=== PATIENT | female | born 1975 | race Caucasian/White ===

== ENCOUNTER 2022-05-12 14:24 | Outpatient (CLI) | payer OTHER, SELFPAY ==
--- NOTE | 2022-05-12 14:40 | CRLHL7_ITS ---
For Patients: As a result of the Century Cures Act, medical imaging exams and procedure reports are released immediately into your electronic medical record. You may view this report before your referring provider. If you have questions, please contact your health care provider. BILATERAL SCREENING MAMMOGRAM WITH COMPUTER-AIDED DETECTION AND TOMOSYNTHESIS TECHNIQUE: CC and MLO views were obtained. These mammographic images have been obtained using full-field digital technique. These mammographic images were interpreted with the benefit of computer-aided detection. Breast Tomosynthesis was used in this interpretation. COMPARISON FILM: 04/16/21, 01/04/20, 11/15/18. FINDINGS: There are scattered areas of fibroglandular density IMPRESSION: There is no radiographic evidence for malignancy. ASSESSMENT: BI-RADS Category 1: Negative RECOMMENDATION: Routine screening mammogram in 1 year. A lay language report of this examination will be provided to the patient. Jaime Martin M.D. Diagnostic Radiologist [email or web address] ROSA/Dictated by: Jaime Martin MD @ 05/13/2022 12:50:00 PM (Electronically Signed)
== END 2022-05-12 14:25 | disposition home or self-care (01) ==
LOC: MAMMO 14:24
PROVIDERS: PCP Family Medicine; Visit Provider Family Medicine
DX: Z12.31 Encounter for screening mammogram for malignant neoplasm of breast (principal)
CPT/HCPCS: 77063; 77067

== ENCOUNTER 2022-09-09 19:26 | Outpatient (CLI) | payer OTHER, SELFPAY ==
--- NOTE | 2022-09-17 08:33 | W.PM.SLEEP ---
Sleep Study Details Details Interpreting Provider: Ag Date of Sleep Study: 09/09/22 Sleep Study Details: STUDY TYPE:? Home unattended ? BMI:? 49.9 ORDERING PROVIDER:Roshni Luong INDICATION:? Concerns about sleep apnea ? SLEEP SUMMARY:? 431.5 minutes monitored RESPIRATORY SUMMARY:? AHI 17.8, supine 27.5, left lateral 8.1, right lateral 3 point on Low oxygen 82 16.1% of study oxygen less than 90% Snoring 11.2% PERIODIC LIMB MOVEMENTS OF SLEEP:? Not recorded during home study CARDIAC:? Range 62-119, mean 76.5 IMPRESSION:? Moderate obstructive sleep apnea with supine position dependency. RECOMMENDATION: Treatment options include AutoSet CPAP pressure 4-17, weight loss.
== END 2022-09-09 19:27 | disposition home or self-care (01) ==
LOC: SLEEP 19:27
PROVIDERS: PCP Family Medicine; Visit Provider Otolaryngology
DX: G47.33 Obstructive sleep apnea (adult) (pediatric) (principal)
CPT/HCPCS: 95806

== ENCOUNTER 2022-09-29 15:51 | Outpatient (CLI) | payer OTHER, SELFPAY | END 2022-09-29 15:52 | disposition home or self-care (01) | PROVIDERS: PCP Family Medicine; Visit Provider Nurse Practitioner Family | DX: Z01.818 Encounter for other preprocedural examination (principal); R42 Dizziness and giddiness | CPT/HCPCS: 80053; 82607; 84443; 85025 ==

== ENCOUNTER 2022-09-30 13:27 | Outpatient (CLI) | payer OTHER, SELFPAY | END 2022-09-30 13:28 | disposition home or self-care (01) | LOC: KYNREF 13:27 | PROVIDERS: PCP Family Medicine; Visit Provider Nurse Practitioner Family | DX: Z01.818 Encounter for other preprocedural examination (principal); R42 Dizziness and giddiness | CPT/HCPCS: 82306 ==

== ENCOUNTER 2022-10-03 06:13 | Outpatient (CLI) | payer OTHER, SELFPAY ==
--- NOTE | 2022-10-03 08:19 | W.ANESCHARGE ---
Anesthesia Charges Start Date/Time Anesthesia Start Date: 10/03/22 Anesthesia Start Time: 07:10 Stop Date/Time Anesthesia Stop Date: 10/03/22 Anesthesia Stop Time: 07:55
== END 2022-10-03 06:14 | disposition home or self-care (01) ==
LOC: OP CLINIC 06:13
PROVIDERS: PCP Family Medicine; Visit Provider Nurse Practitioner Family
DX: Z12.11 Encounter for screening for malignant neoplasm of colon (principal); K63.5 Polyp of colon; K57.30 Diverticulosis of large intestine without perforation or abscess without bleeding; K21.9 Gastro-esophageal reflux disease without esophagitis; R12 Heartburn
CPT/HCPCS: 43239; 45380; 45385; 813; 88305; J2704; J3490

== ENCOUNTER 2022-10-27 14:29 | Outpatient (CLI) | payer OTHER, SELFPAY ==
--- NOTE | 2022-10-27 14:45 | CRLHL7_ITS ---
For Patients: As a result of the 21st Century Cures Act, medical imaging exams and procedure reports are released immediately into your electronic medical record. You may view this report before your referring provider. If you have questions, please contact your health care provider. HISTORY: Left knee pain. TECHNIQUE: Noncontrast MRI of the left knee. COMPARISON: Radiographs 10/20/2022. FINDINGS: Medial compartment: Medial meniscus: There is tearing of the posterior horn of medial meniscus just medial to and extending towards the posterior horn root of the meniscus as noted on sagittal T2 fat-sat image #14 of series 6 and coronal STIR image #22 of series 8. The area of meniscal tearing measures just under 1 cm medial/lateral extent. There is loss of meniscal hoop stress with medial extrusion of the medial meniscal body as noted on coronal STIR image #17 of series 8 for example. Mild fraying of the anterior horn of meniscus. Articular cartilage: Marginal osteophyte formation. Moderate grade medial compartment articular cartilage wear (grade 2, likely with grade 3 more medially). - Lateral compartment: Lateral meniscus: Intact. Articular cartilage: Mild marginal osteophyte formation. The articular cartilage is maintained. - Patellofemoral compartment: Marginal osteophyte formation. There is high-grade cartilage wear of the patella more inferiorly and within the trochlea (up to grade 4 with subchondral bone marrow edema present). - Ligaments: The anterior and posterior cruciate ligaments are intact. Mild medial bowing of the MCL with the ligament otherwise intact. Lateral collateral complex intact. - Extensor mechanism: The distal quadriceps tendon intact. Patellar tendon intact. Medial and lateral patellar restraints are intact. No patellar subluxation. Mild patella stephanie is present. Mild edema within the superior lateral aspect of Hoffa`s fat pad. - Joint space: Small joint effusion. - Bones and soft tissues: There is no acute fracture. A small area of bone marrow edema underlies the posterior medial tibial plateau adjacent to the meniscal tear. Trace popliteal cyst. Mild subcutaneous edema. IMPRESSION: 1. Medial meniscal tear with findings of loss of medial meniscal hoop stress. 2. Tricompartmental degenerative arthrosis of the left knee. Full-thickness cartilage wear within the patellofemoral compartment with subchondral bone marrow edema (grade 4). 3. Minor joint effusion. 4. Mild patella stephanie along with edema within the superior lateral aspect Hoffa`s fat pad. 5. Trace popliteal cyst. Dictated by Danny Navarro MD @ 10/28/2022 2:15:23 PM (Electronically Signed)
== END 2022-10-27 14:30 | disposition home or self-care (01) ==
LOC: MRI 14:30
PROVIDERS: PCP Nurse Practitioner Family; Visit Provider Nurse Practitioner Family
DX: M25.562 Pain in left knee (principal); S83.242A Other tear of medial meniscus, current injury, left knee, initial encounter; M17.12 Unilateral primary osteoarthritis, left knee; M25.462 Effusion, left knee; M71.22 Synovial cyst of popliteal space [Baker], left knee
CPT/HCPCS: 73721

== ENCOUNTER 2023-04-22 09:10 | Emergency (ER) | payer OTHER, SELFPAY ==
[2023-04-22 09:13] VITALS: BP 139/101; PULSE 91; RESP 20; TEMP 36.4; O2SAT 100; BMI 48.4
[2023-04-22 11:16] VITALS: BP 134/82; PULSE 82; RESP 18; O2SAT 98
--- NOTE | 2023-04-22 11:19 | ED.HA ---
HPI - Headache General Time Seen by Provider: 11:19 Date Seen: 04/22/23 Chief Complaint: Headache/Migraine Stated Complaint: Headache Time Seen by Provider: 04/22/23 11:18 Source: patient, RN notes reviewed and old records reviewed Mode of arrival: ambulatory Limitations: no limitations History of Present Illness HPI Narrative: Walter is a very pleasant 47-year-old female with a history of uterine cancer status post hysterectomy at the age of 30, history of elevated BMI who comes to the emergency room with a headache. Patient noted that she awoke on Thursday night April 20 at 2334 hours with a very intense headache on her left quaker. She notes that she was initially dizzy and wobbly. She took ibuprofen and put an ice pack on her neck but it did not really help for the next hour. She then fell asleep and slept until she woke the next morning. Unfortunately the next morning she still had the same level of headache. She had gotten up at 0500 hours got herself out of bed and took some Excedrin migraine which did not seem to help. She went to work and the headache continued throughout the day was associated with mild dizziness at times. She took ibuprofen yesterday afternoon and took a nap but the pain persisted and she was up all night with it. She noted increasing nausea yesterday and today she has had multiple episodes of vomiting from the pain. She notes that the dizziness is worse. She does not describe vertigo. She notes that while waiting in the waiting room the pain was quite intense but has subsided slightly. The pain remains in her left quaker radiating to behind her ear. It is associated with some occasional tearing of the left eye but no drainage from the nose. She has had a history of atypical migraines but none since she got her hair wrist hysterectomy at the age of 30. When she did get her hysterectomy she was found to have uterine cancer but did not require any post surgical chemotherapy or radiation. She notes that over the past year she has a had episodes of dizziness and many of those episodes were associated with falling. She denies any hearing loss or high-pitched sound in her ear although she notes since starting the use of a CPAP she now has tinnitus bilaterally. This is described as a whooshing sound. It is bilateral below but mainly in her right ear. She notes no change in the intensity of the pain with lying down or sitting up but notes when she goes from a lying down position to standing she gets quite shaky and dizzy. In March she was ill and had sinusitis but this had completely resolved by the time the headache started on Thursday. She denies a fever or any recent trauma. She has otherwise been a healthy individual. No numbness or tingling of the extremities. No history of seizure disorders. Related Data Home Medications Medication Instructions Recorded Confirmed famotidine 20 mg tablet (Pepcid) 20 mg PO BID 09/29/22 04/22/23 cholecalciferol (vitamin D3) 50 50 mcg PO QDAY 10/20/22 04/22/23 mcg (2,000 unit) capsule cyanocobalamin (vitamin B-12) 1,000 mcg PO QDAY 10/20/22 04/22/23 1,000 mcg capsule triamcinolone acetonide 55 mcg 1 spray intranasal QDAY PRN 11/27/22 03/08/23 nasal spray aerosol (Nasacort) Previous Rx's Medication Instructions Recorded benzonatate 200 mg capsule 200 mg PO BID-TID PRN cough #30 11/27/22 caps metoclopramide HCl 10 mg tablet 10 mg PO Q6H PRN nausea and 04/22/23 (Reglan) vomiting #30 tabs prednisone 20 mg tablet 10 mg (1/2 x 20 mg) PO DAILY #20 04/22/23 tabs Allergies Allergy/AdvReac Type Severity Reaction Status Date / Time hydrocodone Allergy Severe Shakiness Verified 04/22/23 12:12 Review of Systems Status of ROS: Reports: 10 or more systems reviewed and unremarkable except as noted in History and below Const: Denies: fever or chills Eyes: Reports: increased production of tears (On the right); Denies: change in vision, blurry vision, blind spots, eye discharge or seeing flashes ENMT: Reports: tinnitus; Denies: throat pain, neck pain, throat swelling, difficulty swallowing, nasal discharge or nasal congestion Cardio: Denies: chest pain or shortness of breath with exertion Resp: Denies: shortness of breath or cough GI: Reports: nausea and vomiting; Denies: abdominal pain, diarrhea or difficulty swallowing : Denies: painful urination or urinary frequency Musculo: Denies: back pain, neck pain, extremity pain or extremity swelling Integ/Breast: Denies: rash Neuro: Reports: headache and dizziness; Denies: numbness in extremities, weakness in extremities, confusion or seizure-like activity Allergy/Immuno: Denies: throat swelling PFSH PFS Medical History History of malignant neoplasm of uterus (2006) ?Z85.42 - Personal history of malignant neoplasm of other parts of uterus (ICD-10) History of hypothyroidism ?Z86.39 - Personal history of other endocrine, nutritional and metabolic disease (ICD-10) Sinusitis, acute ?J01.90 - Acute sinusitis, unspecified (ICD-10) Surgical History History of total hysterectomy with removal of both tubes and ovaries (2006) ?Z90.710 - Acquired absence of both cervix and uterus (ICD-10) ?Z90.722 - Acquired absence of ovaries, bilateral (ICD-10) ?Z90.79 - Acquired absence of other genital organ(s) (ICD-10) History of thymectomy (2001) ?Z90.89 - Acquired absence of other organs (ICD-10) Family History Uncle Depression Maternal Grandfather Esophageal carcinoma Social History Narrative: exercise involving [id number] steps at work daily , enrollment representative at [employer], 1 child nonsmoker social drinker -1/week Smoking Status: Former smoker How often do you have a drink containing alcohol: 2-4 times a month AUDIT-C Alcohol total score: 2 Non-prescribed substance use: denies use Exam Narrative: Exam Narrative: Aundrea is alert and oriented. She has a GCS of 15 and is mentating normally. Very articulate. EOM is full and pupils are equal round and reactive. TMs without erythema. No evidence of lesions in hairline. She has no tenderness over the temporal artery. Face is symmetrical. Oral cavity with moist mucous membranes. Neck is supple without lymphadenopathy. Heart with regular rate and rhythm and lungs are clear bilaterally. Abdomen soft. Lower extremities without edema. Moving all extremities. No focal neurological defects. Const: Vital Signs, click to edit/add: Vital Signs - 24 hr 04/22/23 09:13 04/22/23 11:16 04/22/23 13:15 Temperature 97.5 F L Pulse Rate [Pulse Oximeter] 91 82 77 Respiratory Rate 20 18 Blood Pressure [Ri ght Upper Arm] 139/101 H 134/82 Pulse Oximetry 100 98 98 Oxygen Delivery Me thod Room Air Room Air Room Air Documenting provider has reviewed patient's vital signs: yes Course Course ED Course: Differential diagnosis includes but is not limited to subarachnoid hemorrhage, intraparenchymal bleed, atypical migraine, aneurysm, temporal arteritis.. Will place IV give 1 L of normal saline along with Reglan 10 mg IV piggyback and Benadryl [address] of the head as well as CTA given patient's acute onset localized headache and recent dizziness over the past year. Will also check labs to include CBC, comprehensive, CRP. Reevaluation(s) Reevaluation #1: I did discuss with patient her head CT and CTA is reassuring. No evidence of sinusitis either appear she has not really had any relief of her headache but they have just started the Reglan at this point. Reevaluation #2: Patient did not feel that she had significant relief with the Reglan. I was able to speak with Neurology and they suggest a trial of valproic acid 750 mg as well as dexamethasone 10 mg IV. With this patient feels that she is actually improved although headache has not completely dissipated but it is tolerable. Reevaluation #3: At this time patient has no symptoms of jaw claudication pain with palpation over temporal artery and a sed rate of only 28. In addition no evidence of lesion, intracranial bleed, sinusitis. Consultations Consultation #1: I had the pleasure of speaking with Dr. Flood, neurologist. We did push the CT CTA to him that was read as normal by Radiology. He had 2 feels that this does not show any acute findings. Feels that symptoms represent a basilar migraine. With this suggesting away from any trip bands but feels that treatment with Reglan or Compazine is appropriate. He does suggests dexamethasone and valproic acid in as treatment. Vital Signs Vital signs: Initial Vital Signs Temperature 97.5 F L 04/22/23 09:13 Temperature Source Temporal Artery Scan 04/22/23 09:13 Pulse Rate 91 04/22/23 09:13 Respiratory Rate 20 04/22/23 09:13 Blood Pressure 139/101 H 04/22/23 09:13 Blood Pressure Mean 113 H 04/22/23 09:13 Blood Pressure Position Sitting 04/22/23 09:13 Pulse Oximetry 100 04/22/23 09:13 Oxygen Delivery Method Room Air 04/22/23 09:13 Vital Signs Temperature 97.5 F L 04/22/23 09:13 Pulse Rate 91 04/22/23 09:13 Respiratory Rate 20 04/22/23 09:13 Blood Pressure 139/101 H 04/22/23 09:13 Pulse Oximetry 100 04/22/23 09:13 Oxygen Delivery Method Room Air 04/22/23 09:13 Temperature 97.5 F L 04/22/23 09:13 Pulse Rate 77 04/22/23 13:15 Respiratory Rate 18 04/22/23 11:16 Blood Pressure 134/82 04/22/23 11:16 Pulse Oximetry 98 04/22/23 13:15 Oxygen Delivery Method Room Air 04/22/23 13:15 Medications Administered Medications: Discontinued Medications Generic Name Dose Route Start Last Admin Trade Name Freq PRN Reason Stop Dose Admin Dexamethasone 10 mg 04/22/23 14:44 04/22/23 15:03 Dexamethasone 4 Mg/Ml Vial IV 04/22/23 14:45 10 mg ONCE ONE Administration Sodium Chloride 1,000 mls @ 1,000 mls/hr 04/22/23 11:31 04/22/23 14:19 0.9 % Sodium Chloride 1000 Ml IV 04/22/23 12:30 Infused .Q1H YONATAN Infusion Diphenhydramine HCl 50 mg/ 101 mls @ 404 mls/hr 04/22/23 11:29 04/22/23 12:55 Sodium Chloride IVPB 04/22/23 11:30 Infused ONCE ONE Infusion Metoclopramide HCl 10 mg/ 102 mls @ 306 mls/hr 04/22/23 11:29 04/22/23 13:25 Sodium Chloride IVPB 04/22/23 11:30 Infused ONCE ONE Infusion Valproic Acid 750 mg/ Sodium 107.5 mls @ 107.5 mls/hr 04/22/23 14:44 04/22/23 16:06 Chloride IVPB 04/22/23 14:45 Infused ONCE ONE Infusion MDM - Headache MDM Narrative Medical decision making narrative: 1. Basilar migraine-head CT and CTA reassuring with no evidence of aneurysm, intra cranial bleed or lesion. Consulted with Neurology who feels that this most likely represents basilar migraine. Patient initially received Reglan 10 mg IV piggyback and normal saline 1 L as well as Benadryl 50 mg. She appeared to be objectively improved but subjectively did not feel much better. Neurology suggest the use of valproic acid and dexamethasone and patient did have moderate relief. She will be going home with Reglan 10 mg p.o. q.8 hours p.r.n.. I did speak of the dysphoric reaction that some people experience and she may add Benadryl 50 mg if that would occur. In addition Neurology suggests a prednisone taper over a week which we also ordered. Patient should rest push fluids and would need to return to the emergency room if her symptoms worsen. At this time laboratory values are reassuring with no evidence of meningeal signs, temporal arteritis based on exam, elevated white count or electrolyte abnormalities. 2. Dizziness with falls-patient is been experience vertigo with falls in the past. I do recommend official neurology consult in regards to this. 3. Disposition-home at this time. Rest take tomorrow off of work. Return as needed for worsening symptoms. Medical Records Attestation: I reviewed the patient's medical records. Lab Data Attestation: I reviewed the patient's lab results. Labs: Lab Results 04/22/23 04/22/23 Range/Units 11:58 12:29 WBC 6.72 (4.50-11.00) K/uL RBC 4.61 (4.00-5.20) m/uL Hgb 13.2 (12.0-16.0) gm/dL Hct 41.5 (33.0-51.0) % MCV 90 (80-100) fL MCH 29 (26-34) pg MCHC 32 (32-36) gm/dL RDW Coeff of Ceci 13.5 (11.5-15.5) % Plt Count 260 (140-440) K/uL Neut % (Auto) 71.2 (42.0-72.0) % Lymph % (Auto) 21.7 (20-44) % Gilmer % (Auto) 6.1 (0.0-11.0) % Eos % (Auto) 0.6 (0.0-7.0) % Baso % (Auto) 0.3 (0.0-3.0) % Neut # (Auto) 4.78 (1.7-7.0) K/uL Lymph # (Auto) 1.46 (0.90-2.90) K/uL Gilmer # (Auto) 0.40 (0.00-0.90) K/UL Eos # (Auto) 0.04 (0.00-0.50) K/uL Baso # (Auto) 0.02 (0.00-0.30) K/uL Abs Immat Gran (auto) 0.01 (0.00-0.30) K/uL Imm/Tot Granulo (auto) 0.1 % ESR 28 H (2-20) mm/hr Sodium 141 (135-149) mmol/L Potassium 4.0 (3.6-5.1) mmol/L Chloride 104 (96-114) mmol/L Carbon Dioxide 26 (20-32) mmol/L Anion Gap 11 (7-15) mEq/L BUN 21 (5-24) mg/dL Creatinine 0.6 (0.5-1.5) mg/dL Estimated Creat Clear 109.68 Estimated GFR 112 ml/min Glucose 102 (60-115) mg/dL Calcium 9.6 (8.4-10.6) mg/dL Total Bilirubin 0.3 (0.1-1.5) mg/dL AST 24 (12-35) U/L ALT 28 (4-35) U/L Alkaline Phosphatase 71 (40-150) U/L C-Reactive Protein 0.9 (0.5-1.0) mg/dL Total Protein 7.9 (6.0-8.3) g/dL Albumin 4.4 (3.3-5.0) g/dL Lab Acknowledgement Test Added Imaging Data CT scan - head: Attestation: I have reviewed the pertinent imaging results. My impression: I do not note any acute findings. Radiologist's impression: Brain parenchyma and extra-axial spaces: The garcia-white differentiation is normal. No sign of mass effect, hemorrhage, or midline shift. No extra-axial fluid collection. Ventricles are normal in size and configuration. Skull base and calvarium: The visualized paranasal sinuses and mastoid air cells demonstrate no acute or significant findings. The visualized orbits are grossly unremarkable. No skull fractures. IMPRESSION: Unremarkable noncontrast head CT. Head and neck angio: Attestation: I have reviewed the pertinent imaging results. Radiologist's impression: CTA head: There is 2 mm dilatation at the expected origin of the left posterior communicating artery, most compatible with infundibulum. No sign of occlusion or significant aneurysm. CTA neck: No sign of dissection or significant stenosis. Discharge Plan Discharge Clinical Impression: Basilar migraine Patient Disposition: Home, Self-Care Condition: Improved Additional Instructions: If you would have a headache suggest ibuprofen 600 mg every 8 hours as needed +use of Reglan. If you would like to add Benadryl 25-50 mg you may do so. Tomorrow morning start prednisone taper over the next week. Follow-up with your primary provider and suggest neurology consult officially for the vertigo and dizziness you been experiencing over the past year Return to the emergency room for worsening symptoms and as needed. Prescriptions: New metoclopramide HCl [Reglan] 10 mg tablet 10 mg PO Q6H PRN (Reason: nausea and vomiting) Qty: 30 0RF prednisone 20 mg tablet 10 mg PO DAILY Qty: 20 0RF Rx Instructions: Take 5 tabs her 50 mg on day 1, 4 tabs or 40 mg on day 2, 3 tabs with 30 mg on day 3, 2 tablets or 20 mg on day 4 and 5, 10 mg or 1 tablet on day 6 and 7. No Action famotidine [Pepcid] 20 mg tablet 20 mg PO BID triamcinolone acetonide [Nasacort] 55 mcg aerosol,spray 1 spray intranasal QDAY PRN Rx Instructions: administer into each nostril cholecalciferol (vitamin D3) 50 mcg (2,000 unit) capsule 50 mcg PO QDAY cyanocobalamin (vitamin B-12) 1,000 mcg capsule 1,000 mcg PO QDAY benzonatate 200 mg capsule 200 mg PO BID-TID PRN (Reason: cough) Qty: 30 0RF Follow Up/Referrals: Rosey Brewer, [employer]ICATION PLANT OPERATOR, MEMORIAL COUNSELOR [Primary Care Provider] - Stand Alone Forms: [facility] Info Inst[facility]
--- NOTE | 2023-04-22 11:29 | CT_ITS ---
Final Report Patient: TENISHA NUNEZ Facility:?[facility] Patient ID:?[id number] Site Patient ID:?[id number]. Site :?1975 Study:?CT Neck Angio W/ 147CC ISOVUE 370-04/22/2023 12:29:14 PM Ordering Physician:DEBBIE Final Report: INDICATION: Headache. TECHNIQUE: CTA neck with contrast bolus tracking, 3D angiographic rendering using maximum intensity projection (MIP) and images permanently archived. FINDINGS: There is no significant carotid artery stenosis or dissection. There is no significant vertebral artery stenosis or dissection. The soft tissues of the neck are within normal limits. The cervical spine is in normal alignment. IMPRESSION: Unremarkable neck CTA. No significant carotid or vertebral artery stenosis or dissection. Please note that all CT scans at this facility use dose modulation, iterative reconstruction, and/or weight-based dosing when appropriate to reduce radiation dose to as low as reasonably achievable. Dictated by Azael Marquis MD @ 04/23/2023 8:45:49 AM (Electronic Signature)
--- NOTE | 2023-04-22 11:29 | CT_ITS ---
Final Report Patient: TENISHA NUNEZ Facility:?[facility] Patient ID:?[id number] Site Patient ID:?[id number]. Site :?1975 Study:?CT Head Angio W/ 147CC ISOVUE 370-04/22/2023 12:28:44 PM Ordering Physician:DEBBIE Final Report: INDICATION: Headache. TECHNIQUE: CTA head with contrast bolus tracking, 3D angiographic rendering using maximum intensity projection (MIP) and images permanently archived. FINDINGS: There is normal opacification of the intracranial vasculature. There is no large vessel occlusion. No aneurysm is identified. IMPRESSION: Unremarkable head CTA. Please note that all CT scans at this facility use dose modulation, iterative reconstruction, and/or weight-based dosing when appropriate to reduce radiation dose to as low as reasonably achievable. Dictated by Azael Marquis MD @ 04/23/2023 8:44:21 AM (Electronic Signature)
--- NOTE | 2023-04-22 11:29 | CT_ITS ---
Final Report Patient: TENISHA NUNEZ Facility:?[facility] Patient ID:?[id number] Site Patient ID:?[id number]. Site :?1975 Study:?CT Head WITHOUT-04/22/2023 12:27:27 PM Ordering Physician:DEBBIE Final Report: INDICATION: CONCERN FOR ANEURYSM TECHNIQUE: CT head without contrast. COMPARISON: None. FINDINGS: CSF spaces: Within normal limits for age. Brain parenchyma and extra-axial spaces: The garcia-white differentiation is normal. No sign of mass effect, hemorrhage, or midline shift. No extra-axial fluid collection. Ventricles are normal in size and configuration. Skull base and calvarium: The visualized paranasal sinuses and mastoid air cells demonstrate no acute or significant findings. The visualized orbits are grossly unremarkable. No skull fractures. IMPRESSION: Unremarkable noncontrast head CT. Please note that all CT scans at this facility use dose modulation, iterative reconstruction, and/or weight-based dosing when appropriate to reduce radiation dose to as low as reasonably achievable. Dictated by Larry Dickey MD @ 04/22/2023 12:36:53 PM (Electronic Signature)
[2023-04-22 12:10] LABS: Basophils Absolute Auto 0.02 K/uL (0.00-0.30); Basophils Percent Auto 0.3 % (0.0-3.0); Eosinophils Absolute Auto 0.04 K/uL (0.00-0.50); Eosinophils Percent Auto 0.6 % (0.0-7.0); Hematocrit 41.5 % (33.0-51.0); Hemoglobin* 13.2 gm/dL (12.0-16.0); Immature Granulocytes Abs Auto 0.01 K/uL (0.00-0.30); Immature Granulocytes Pct Auto 0.1 %; Lymphocytes Absolute Auto 1.46 K/uL (0.90-2.90); Lymphocytes Percent Auto 21.7 % (20-44); Mean Corpuscular HGB Conc 32 gm/dL (32-36); Mean Corpuscular Hemoglobin 29 pg (26-34); Mean Corpuscular Volume 90 fL (80-100); Monocytes Percent Auto 6.1 % (0.0-11.0); Neutrophils Absolute Auto 4.78 K/uL (1.7-7.0); Neutrophils Percent Auto 71.2 % (42.0-72.0); Platelet Count* 260 K/uL (140-440); RDW Coefficient of Variation % 13.5 % (11.5-15.5); Red Blood Count 4.61 m/uL (4.00-5.20); White Blood Count* 6.72 K/uL (4.50-11.00)
[2023-04-22] MEDS: 0.9 % SODIUM CHLORIDE 1000 ml 1,000 ML IV (12:15)
[2023-04-22 12:24] LABS: Albumin* 4.4 g/dL (3.3-5.0); Chloride* 104 mmol/L (96-114); Sodium* 141 mmol/L (135-149)
[2023-04-22 12:27] LABS: Creatinine* 0.6 mg/dL (0.5-1.5); Est. Creatinine Clearance* 109.68; Estimated Glomerular Filt Rate 112 ml/min; Slide Review Reflex No
[2023-04-22 12:28] LABS: Alanine Aminotransferase* 28 U/L (4-35); Alkaline Phosphatase* 71 U/L (40-150); Anion Gap 11 mEq/L (7-15); Aspartate Amino Transferase* 24 U/L (12-35); Bilirubin Total* 0.3 mg/dL (0.1-1.5); Blood Urea Nitrogen* 21 mg/dL (5-24); Carbon Dioxide* 26 mmol/L (20-32); Glucose* 102 mg/dL (60-115); Total Protein* 7.9 g/dL (6.0-8.3)
[2023-04-22] MEDS: diphenhydrAMINE 50 MG in 0.9 % SODIUM CHLORIDE 100 ml 100 ML 404 MG IVPB (12:28)
[2023-04-22 12:29] LABS: Calcium* 9.6 mg/dL (8.4-10.6)
[2023-04-22 12:31] LABS: C Reactive Protein* 0.9 mg/dL (0.5-1.0)
[2023-04-22] MEDS: METOCLOPRAMIDE HCL 10 MG in 0.9 % SODIUM CHLORIDE 100 ml 100 ML 306 MG IVPB (12:55)
[2023-04-22 13:15] VITALS: PULSE 77; O2SAT 98
[2023-04-22 13:45] LABS: Erythrocyte SedimentationRate* 28 mm/hr (2-20)
[2023-04-22] MEDS: dexAMETHasone 4 MG/ML VIAL 10 MG IV (15:03)
== END 2023-04-22 16:30 | disposition home or self-care (01) ==
PROVIDERS: Emergency Provider Family Medicine; PCP Nurse Practitioner Family
DX: G43.909 Migraine, unspecified, not intractable, without status migrainosus (principal)
CPT/HCPCS: 36415; 70450; 70496; 70498; 80053; 85025; 85651; 86140; 96365; 96366; 96375; 99284; J1100; J1200; J2765; J7030; Q9967

== ENCOUNTER 2023-05-21 15:26 | Outpatient (CLI) | payer OTHER, SELFPAY ==
--- NOTE | 2023-05-21 15:40 | MM_ITS ---
Patient: TENISHA NUNEZ Facility:?[facility] Patient ID:?[id number] Site Patient ID:?[id number]. Site :?[id number] Study:?XRay-Breast Bilateral 3D W/CAD-05/21/2023 3:54:35 PM Ordering Physician:Erin Final Report: BILATERAL SCREENING MAMMOGRAM WITH COMPUTER-AIDED DETECTION AND TOMOSYNTHESIS TECHNIQUE: CC and MLO views were obtained. These mammographic images have been obtained using full-field digital technique. These mammographic images were interpreted with the benefit of computer-aided detection. Breast Tomosynthesis was used in this interpretation. COMPARISON FILM: 05/12/22, 04/16/21, 01/04/20. FINDINGS: There are scattered areas of fibroglandular density. IMPRESSION: There is no radiographic evidence for malignancy. ASSESSMENT: BI-RADS Category 1: Negative RECOMMENDATION: Routine screening mammogram in 1 year. A lay language report of this examination will be provided to the patient. Jaime Martin M.D. Diagnostic Radiologist [email or web address] DSM/sp R& Transcribed: 6:00 p.m. SP/Dictated by: Jaime Martin MD @ 05/22/2023 8:25:00 AM Signed by:?Jaime Martin MD @05/22/2023 8:19:10 PM (Electronic Signature)
== END 2023-05-21 15:27 | disposition home or self-care (01) ==
LOC: MAMMO 15:27
PROVIDERS: PCP Nurse Practitioner Family; Visit Provider Nurse Practitioner Family
DX: Z12.31 Encounter for screening mammogram for malignant neoplasm of breast (principal)
CPT/HCPCS: 77063; 77067

== ENCOUNTER 2023-07-22 16:00 | Outpatient (RCR) | payer OTHER, SELFPAY | END 2023-09-25 17:17 | disposition home or self-care (01) | PROVIDERS: PCP Nurse Practitioner Family; Visit Provider Nurse Practitioner Family | DX: E66.01 Morbid (severe) obesity due to excess calories (principal); Z68.43 Body mass index [BMI] 50.0-59.9, adult; R26.2 Difficulty in walking, not elsewhere classified; M62.81 Muscle weakness (generalized); Z51.89 Encounter for other specified aftercare | CPT/HCPCS: 97110; 97140; 97161 ==

== ENCOUNTER 2024-05-30 13:00 | Outpatient (CLI) | payer BC, SELFPAY | END 2024-05-30 13:01 | disposition home or self-care (01) | PROVIDERS: PCP Nurse Practitioner Family; Visit Provider Nurse Practitioner Family | DX: R10.30 Lower abdominal pain, unspecified (principal) | CPT/HCPCS: 80053; 85025; 87086 ==

== ENCOUNTER 2024-06-07 10:30 | Outpatient (CLI) | payer BC, SELFPAY ==
--- NOTE | 2024-06-07 11:00 | CRLHL7_ITS ---
For Patients: As a result of the Century Cures Act, medical imaging exams and procedure reports are released immediately into your electronic medical record. You may view this report before your referring provider. If you have questions, please contact your health care provider. INDICATION: Lower abdominal pain TECHNIQUE: CT abdomen and pelvis with 149 mL Isovue 370 intravenous contrast COMPARISON: None. FINDINGS: Lower chest: Unremarkable. Liver: Normal in size and attenuation. No suspicious masses. Gallbladder and bile ducts: Cholecystectomy Pancreas: Unremarkable. No mass or inflammation. Spleen: Normal in size. No masses. Adrenal glands: Normal in size. No nodules. Kidneys: Normal in size. No suspicious masses, stones, or hydronephrosis. GI tract: Unremarkable. Normal in caliber. No sign of mass or inflammation. Normal appendix. Diverticulosis Vasculature: Abdominal aorta is normal in caliber. Lymph nodes: No lymphadenopathy. Peritoneum/Abdominal Wall: Small fat containing umbilical hernia Pelvis: 2.9 centimeter right adnexal cystic structure 2/132. Bones: Unremarkable for age. IMPRESSION: 1. No acute findings in the abdomen or pelvis. 2.9 centimeter right adnexal cystic structure consider pelvic ultrasound for further evaluation. Please note that all CT scans at this facility use dose modulation, iterative reconstruction, and/or weight-based dosing when appropriate to reduce radiation dose to as low as reasonably achievable. Dictated by Thania Rivera MD @ 06/08/2024 6:47:48 AM (Electronically Signed)
== END 2024-06-07 10:31 | disposition home or self-care (01) ==
LOC: CT 10:31
PROVIDERS: PCP Nurse Practitioner Family; Visit Provider Nurse Practitioner Family
DX: R10.9 Unspecified abdominal pain (principal); N94.89 Other specified conditions associated with female genital organs and menstrual cycle
CPT/HCPCS: 74177; Q9967

== ENCOUNTER 2024-06-08 14:42 | Outpatient (CLI) | payer BC, SELFPAY ==
--- NOTE | 2024-06-08 15:00 | CRLHL7_ITS ---
For Patients: As a result of the Century Cures Act, medical imaging exams and procedure reports are released immediately into your electronic medical record. You may view this report before your referring provider. If you have questions, please contact your health care provider. INDICATION: BILATERAL SCREENING MAMMOGRAM, ASYMPTOMATIC 48 Y/O FEMALE COMPARISON: 05/21/23, 05/12/22, 05/09/21 TECHNIQUE: CC and MLO views were obtained. These mammographic images have been obtained using full-field digital technique. These mammographic images were interpreted with the benefit of computer aided detection and tomosynthesis. BREAST COMPOSITION: There are scattered areas of fibroglandular density. FINDINGS: No suspicious findings. ASSESSMENT: BI-RADS 1 Negative RECOMMENDATION: Annual screening mammogram. A lay language report of this examination will be provided to the patient. Dictated by: Jaime Martin MD @ 06/09/2024 12:10:53 (Electronically Signed)
== END 2024-06-08 14:43 | disposition home or self-care (01) ==
LOC: MAMMO 14:43
PROVIDERS: PCP Nurse Practitioner Family; Visit Provider Nurse Practitioner Family
DX: Z12.31 Encounter for screening mammogram for malignant neoplasm of breast (principal)
CPT/HCPCS: 77063; 77067